=== PATIENT | male | born 1965 | race Caucasian/White ===

== ENCOUNTER 2016-12-17 11:27 | Outpatient (CLI) | payer OTHER | END 2016-12-17 11:28 | disposition home or self-care (01) | DX: Z00.00 Encounter for general adult medical examination without abnormal findings (principal); Z12.5 Encounter for screening for malignant neoplasm of prostate ==

== ENCOUNTER 2017-04-17 12:35 | Day surgery (SDC) | payer OTHER ==
[2017-04-17] MEDS ORDERED: LACTATED RINGERS 1,000 ML IV ONE (12:49)
[2017-04-17] MEDS ORDERED: fentaNYL 100 MCG/2 ML VIAL IVP ONE (13:13)
[2017-04-17] MEDS ORDERED: MIDAZOLAM 2 MG/2 ML VIAL IVP ONE (13:13)
[2017-04-17 13:49] VITALS: BP 111/91
--- NOTE | 2017-04-20 07:40 | PROCEDURE REPORT ---
DATE OF PROCEDURE: 04/17/2017 00:00:00 OPERATIVE PROCEDURE: Esophagogastroduodenoscopy with biopsy. ENDOSCOPIST: Tacos Ledesma MD PRIMARY CARE PHYSICIAN: Wilber Dickson MD INDICATION: Significant gastroesophageal reflux, primarily with regurgitation and now with 9 months of laryngitis; rule out esophagitis. PREMEDICATIONS: Fentanyl 100 mcg, Versed 5 mg IV titration. TOTAL SEDATION TIME: 15 minutes. OPERATIVE PROCEDURE: After informed consent was obtained, the patient was placed into the left later al decubitus position. The video arthroscope was placed in the oropharynx and with the patient's hel p swallowed into the esophagus. The esophagus, stomach, duodenum were carefully examined. On withdr awal, retroflexed view of the GE junction was performed. The scope was removed. The patient tolerat ed the procedure well. BLOOD LOSS: None. COMPLICATIONS: None. FINDINGS 1. Essentially normal vocal cords grossly, but there was some abnormal movement of the right arytenoi d being much floppier than the left. 2. Normal esophagus with the exception of mild rings distally, biopsy taken to rule out eosinophilic esophagitis. 3. Striped gastric erythema, biopsy taken to rule out Helicobacter. 4. Normal duodenal bulb and sweep. I had a discussion pre-procedure with the patient as to how he would like to proceed. He sounds like a good candidate for considering a fundoplication, given that he has such significant gastroesophage al reflux. I think we should keep the workup going by doing a manometry and a 24-hour pH monitor, wh ich could even be done on medication. I will have the office call him to set this up; then return to see either me or Deann Stoddard. JOB #: [id number] EXT JOB #:[id number]
== END 2017-04-17 12:36 | disposition home or self-care (01) ==
LOC: SDS 12:35
PROVIDERS: ATTEND Internal Medicine Gastroenterology
PROC: 0DB68ZX Excision of Stomach, Via Natural or Artificial Opening Endoscopic, Diagnostic (ICD-10-PCS; 2017-04-17)
PROC: 0DB38ZX Excision of Lower Esophagus, Via Natural or Artificial Opening Endoscopic, Diagnostic (ICD-10-PCS; principal; 2017-04-17 13:30)
DX: K21.9 Gastro-esophageal reflux disease without esophagitis (principal); J04.0 Acute laryngitis; K29.50 Unspecified chronic gastritis without bleeding; J38.7 Other diseases of larynx
CPT/HCPCS: 43239; 88305; 88342; J7120

== ENCOUNTER 2017-12-16 08:50 | Outpatient (CLI) | payer OTHER ==
[2017-12-16 12:55] LABS: BASOPHILS % (AUTO) 0.5 %; EOSINOPHILS # (AUTO) 0.1 10^3/uL (0.0-0.7); EOSINOPHILS % (AUTO) 2.7 %; HGB - HEMOGLOBIN 15.6 g/dL (14.0-18.0); LYMPHOCYTES # (AUTO) 1.6 10^3/uL (1.5-3.5); MEAN CORPUSCULAR HEMOGLOBIN 30.1 pg (27.0-31.0); MEAN CORPUSCULAR HGB CONC 34.5 g/dL (32.0-36.0); MEAN CORPUSCULAR VOLUME 87.3 fL (80.0-94.0); MEAN PLATELET VOLUME 10.1 fL (7.4-11.4); MONOCYTES # (AUTO) 0.6 10^3/uL (0.0-1.0); MONOCYTES % (AUTO) 12.3 %; NEUTROPHILS # (AUTO) 2.6 10^3/uL (1.5-6.6); NEUTROPHILS % (AUTO) 52.5 %; PLT - PLATELET COUNT 161 10^3/uL (130-450); RED BLOOD COUNT 5.18 10^6/uL (4.70-6.10); RED CELL DISTRIBUTION WIDTH 13.1 % (12.0-15.0); WHITE BLOOD COUNT 4.9 x10^3/uL (4.8-10.8)
[2017-12-16 13:38] LABS: ALBUMIN 4.2 g/dL (3.2-5.5); ALBUMIN/GLOBULIN RATIO 1.6 (1.0-2.2); ALKALINE PHOSPHATASE 58 IU/L (42-121); ALT ALANINE AMINOTRANSFERASE 49 IU/L (10-60); AST ASPARTATE AMINOTRANSFERASE 33 IU/L (10-42); BILIRUBIN,TOTAL 0.7 mg/dL (0.2-1.0); BUN - BLOOD UREA NITROGEN 16 mg/dL (6-20); CALCIUM 8.8 mg/dL (8.5-10.3); CARBON DIOXIDE - CO2 24 mmol/L (21-32); CHLORIDE 106 mmol/L (101-111); CHOL/HDL RATIO 5.1 (<5.0); CHOLESTEROL 175 mg/dL; CREATININE 1.1 mg/dL (0.6-1.2); GFR - MDRD 70 (>89); GLUCOSE 93 mg/dL (70-100); HDL CHOLESTEROL 34 mg/dL; LDL CHOLESTEROL,CALCULATED 108 mg/dL; LDL/HDL RATIO 3.2 (<3.6); SODIUM 138 mmol/L (135-145); TOTAL PROTEIN 6.9 g/dL (6.7-8.2); VLDL CHOLESTEROL 33 mg/dL
== END 2017-12-16 08:51 | disposition home or self-care (01) ==
LOC: LAB.WCP 08:50
PROVIDERS: ATTEND Physician Assistant Medical
DX: Z00.00 Encounter for general adult medical examination without abnormal findings (principal); Z12.5 Encounter for screening for malignant neoplasm of prostate
CPT/HCPCS: 36415; 80053; 80061; 83721; 84153; 84443; 85025

== ENCOUNTER 2018-01-27 09:49 | Outpatient (CLI) | payer OTHER | END 2018-01-27 09:50 | disposition home or self-care (01) | LOC: NS 09:49 | PROVIDERS: ATTEND Physician Assistant Medical | DX: Z71.3 Dietary counseling and surveillance (principal); K21.9 Gastro-esophageal reflux disease without esophagitis; Z98.890 Other specified postprocedural states; Z68.29 Body mass index [BMI] 29.0-29.9, adult | CPT/HCPCS: 97802 ==

== ENCOUNTER 2018-02-28 10:56 | Outpatient (CLI) | payer OTHER | END 2018-02-28 10:57 | disposition home or self-care (01) | LOC: NS 10:56 | PROVIDERS: ATTEND Physician Assistant Medical | DX: Z71.3 Dietary counseling and surveillance (principal); K21.9 Gastro-esophageal reflux disease without esophagitis; Z68.27 Body mass index [BMI] 27.0-27.9, adult | CPT/HCPCS: 97803 ==

== ENCOUNTER 2018-12-11 11:53 | Emergency (ER) | payer OTHER ==
[2018-12-11] MEDS ORDERED: OSELTAMIVIR 75 MG CAPSULE PO STA (13:42)
[2018-12-11] MEDS ORDERED: IBUPROFEN 800 MG TABLET PO STA (13:42)
--- NOTE | 2018-12-11 13:44 | ED Physician Documentation ---
PD HPI URI - Stated complaint Stated Complaint: FEVER/COUGH - Chief complaint Chief Complaint: General - History obtained from History obtained from: Patient - History of Present Illness Timing - onset: Yesterday Timing details: Still present (worse today) Associated symptoms: Chills, Nasal congestion, Sore throat, Productive cough Similar symptoms before: Has not had sx before - Additional information Additional information: The patient is a 53-year-old male who presents with fever and chills, and productive cough that started yesterday. His symptoms are worse today. He reports associated headache, myalgias, and sore throat. He denies abdominal pain, nausea or vomiting. He has not had a flu vaccination this year. His past medical history is significant for Nat fundoplication. Review of Systems Constitutional: reports: Fever, Chills, Myalgias Eyes: denies: Irritation Ears: denies: Ear pain Nose: reports: Congestion Throat: reports: Sore throat Cardiac: denies: Chest pain / pressure Respiratory: reports: Cough. denies: Dyspnea GI: denies: Abdominal Pain, Nausea, Vomiting : denies: Dysuria Skin: denies: Rash Musculoskeletal: reports: Back pain (Generalized arthralgias) Neurologic: reports: Headache. denies: Focal weakness, Numbness PD PAST MEDICAL HISTORY - Past Medical History Cardiovascular: None Respiratory: None Endocrine/Autoimmune: None GI: GERD, Hiatal hernia : None HEENT: Other Psych: None Musculoskeletal: None Derm: None - Past Surgical History General: Colonoscopy, Other Ortho: Arthroscopic surgery HEENT: Rhinoplasty - Present Medications Home Medications: Ambulatory Orders Medication Instructions Recorded Confirmed Omeprazole [PriLOSEC] 2 mg PO BID 01/10/15 04/17/17 Aspirin [Adult Low Dose Aspirin EC] 1 DAILY 04/17/17 Sildenafil Citrate [Viagra] 1 PRN 04/17/17 Oseltamivir [Tamiflu] 75 mg PO BID #10 capsule 12/11/18 - Allergies Allergies/Adverse Reactions: Allergies Allergy/AdvReac Type Severity Reaction Status Date / Time No Known Drug Allergies Allergy Verified 12/11/18 12:06 - Social History Does the pt smoke?: No Smoking Status: Never smoker Does the pt drink ETOH?: Yes Does the pt have substance abuse?: No PD ED PE NORMAL - Vitals Vital signs reviewed: Yes (diastolic hypertension) - General General: Alert and oriented X 3, Well developed/nourished, Other (Appears miserable; coughing) - HEENT HEENT: Atraumatic, Ears normal, Pharynx benign - Neck Neck: Supple, no meningeal sign, No adenopathy, No JVD - Cardiac Cardiac: RRR, No murmur - Respiratory Respiratory: Clear bilaterally - Abdomen Abdomen: Soft, Non tender - Back Back: No CVA TTP - Derm Derm: No rash - Extremities Extremities: No edema, No calf tenderness / cord - Neuro Neuro: Alert and oriented X 3, No motor deficit, No sensory deficit Results - Vitals Vitals: Vital Signs - 24 hr 12/11/18 12:06 Temperature 37.6 C H Heart Rate 91 Respiratory 16 Rate Blood Pressure 128/91 H O2 Saturation 95 Oxygen O2 Source Room air - Labs Labs: Laboratory Tests 12/11/18 12:28 Influenza A (Rapid) POSITIVE H Influenza B (Rapid) Negative PD MEDICAL DECISION MAKING - ED course Complexity details: reviewed results, considered differential, d/w patient, d/w family ED course: The patient's presentation is most consistent with influenza, and his nasal swab is positive for influenza A. His presentation does not suggest pneumonia. Treatment in the emergency department included administration of Tamiflu 75 mg orally, and ibuprofen 800 mg orally. I discussed with him and his the expected course of illness, outpatient treatment and follow-up, as well as potentially worrisome signs or symptoms that should prompt reevaluation in the emergency department. Departure - Departure Disposition: 01 Home, Self Care Clinical Impression: Influenza A Condition: Stable Instructions: ED Flu Follow-Up: LIB[facility] Valles [Provider Group] Prescriptions: Oseltamivir [Tamiflu] 75 mg PO BID #10 capsule Comments: Drink plenty of fluids. Take Tamiflu twice daily as prescribed. You can use ibuprofen, up to 800 mg 3 times daily for its anti-inflammatory effect. Follow-up with your primary physician within 2 weeks. Call to schedule appointment. Return to the emergency department if you develop increasing difficulty breathing, or otherwise worsening symptom.
[2018-12-11 14:05] VITALS: BP 112/78
== END 2018-12-11 14:12 | disposition home or self-care (01) ==
LOC: ED 11:53
DX: J10.1 Influenza due to other identified influenza virus with other respiratory manifestations (principal)
CPT/HCPCS: 87275; 87276; 99283; A9270

== ENCOUNTER 2020-11-23 08:59 | Outpatient (CLI) | payer OTHER | END 2020-11-23 09:00 | disposition home or self-care (01) | LOC: RT 08:59 | PROVIDERS: ATTEND Family Medicine | DX: Z53.9 Procedure and treatment not carried out, unspecified reason (principal) ==

== ENCOUNTER 2023-02-26 09:40 | Outpatient (CLI) | payer OTHER ==
--- NOTE | 2023-02-26 17:09 | XRAY Report ---
PROCEDURE: Chest 2 View X-Ray INDICATIONS: R05.9 TECHNIQUE: 2 views of the chest were acquired. COMPARISON: None. FINDINGS: Surgical changes and devices: None. Lungs and pleura: No pleural effusions or pneumothorax. Lungs are clear. Mediastinum: Mediastinal contours appear normal. Heart size is normal. Bones and chest wall: No suspicious bony lesions. Overlying soft tissues appear unremarkable. IMPRESSION: No acute cardiopulmonary process. Reviewed by: Edwin Nagel MD on 02/26/2023 4:08 PM [email or web address] Approved by: Edwin Nagel MD on 02/26/2023 4:08 PM AKGLENN Station ID: [id number]
== END 2023-02-26 09:41 | disposition home or self-care (01) ==
LOC: DI.N 09:40
PROVIDERS: ATTEND Student in an Organized Health Care Education/Training Program
DX: R05.9 Cough, unspecified (principal)